=== PATIENT | male | born 1945 | race Caucasian/White ===

== ENCOUNTER 2022-05-05 09:45 | Day surgery (SDC) | payer MEDICARE, OTHER ==
[2022-05-04 08:53] LABS: Basophils # (auto) 0.1 10 ^3/uL (0-0.2); Basophils % (auto) 0.8 % (0.0-2.0); Eosinophils # (auto) 0.2 10 ^3/uL (0-0.8); Eosinophils % (auto) 2.7 % (0.0-7.0); Hematocrit 36.9 % (41.0-53.0); Hemoglobin 12.2 g/dL (13.5-17.5); Lymphocytes # (auto) 1.2 10 ^3/uL (0.4-5.4); Lymphocytes % (auto) 18.2 % (10.0-50.0); Mean Corpuscular Hemoglobin 27.4 pg (28.0-32.0); Mean Corpuscular Hgb Conc. 32.9 g/dL (32.0-36.0); Mean Corpuscular Volume 83.3 fL (80.0-100.0); Monocytes # (auto) 0.6 10 ^3/uL (0-1.3); Monocytes % (auto) 9.4 % (0.0-12.0); Neutrophils # (auto) 4.4 10 ^3/uL (1.6-8.6); Neutrophils % (auto) 68.9 % (37.0-80.0); Red Blood Cells 4.43 10^6/uL (4.5-5.90); Red Cell Distribution Width 15.4 % (11.8-14.3); White Blood Cell 6.4 10^3/uL (4.4-10.8)
[2022-05-04 09:18] LABS: INR 0.99 (0.9-1.15); Partial Thromboplastin Time 24.8 sec (23.6-33.0)
[2022-05-04 09:23] LABS: Urine Bacteria NONE SEEN /hpf (None Seen); Urine Blood Negative /uL (Negative); Urine Hyaline Cast FEW /lpf (0 - 2); Urine Specific Gravity 1.013 (1.001-1.035); Urine WBC <1 /hpf (0 - 3)
[2022-05-04 09:25] LABS: Albumin 3.8 g/dL (3.4-5.0); Potassium 4.4 mmol/L (3.5-5.1)
[2022-05-04 09:28] LABS: BUN/Creatinine Ratio 14.6; Bilirubin, Total 0.4 mg/dL (0.2-1.0); Total Protein 7.3 g/dL (6.4-8.2)
[~2022-05-05] VITALS: Ht 185.4 cm; Wt 97.5 kg
[~2022-05-05 09:45] MED LIST: AMLO10CA PO; APIX5TAB PO; CHOLCAP10 PO; CYCL-839 PO; CYCL1POW XX; LINA5TAB PO; METO25TA5 PO; PRAV20TA3 PO; TRIA37.56 PO
[2022-05-05] MEDS ORDERED: MIDAZOLAM HCL 2MG/2ML 2ml VIAL (1mg/ml) ONE (10:57)
[2022-05-05] MEDS ORDERED: fentaNYL CITRATE 100 MCG/2 ML VL ONE (10:57)
[2022-05-05] MEDS ORDERED: LIDOCAINE 2% (LOCAL ANESTH.) PF 5ml SDV ONE (11:00)
[2022-05-05] MEDS ORDERED: ONDANSETRON HCL 4 MG/2 ML VIAL ONE (11:00)
[2022-05-05] MEDS ORDERED: PROPOFOL 10 MG/ML 20 ML IV ONE (11:28)
[2022-05-05] MEDS ORDERED: ONDANSETRON HCL 4 MG/2 ML VIAL IV PRN (11:30)
[2022-05-05 12:15] VITALS: BP 113/53
== END 2022-05-05 12:15 | disposition home or self-care (01) ==
LOC: GI 09:45
PROVIDERS: ATTEND Internal Medicine Gastroenterology
DX: R19.5 Other fecal abnormalities (principal); D12.6 Benign neoplasm of colon, unspecified; K64.8 Other hemorrhoids; I12.9 Hypertensive chronic kidney disease with stage 1 through stage 4 chronic kidney disease, or unspecified chronic kidney disease; E11.22 Type 2 diabetes mellitus with diabetic chronic kidney disease; N18.30 Chronic kidney disease, stage 3 unspecified; E78.00 Pure hypercholesterolemia, unspecified; Z86.2 Personal history of diseases of the blood and blood-forming organs and certain disorders involving the immune mechanism; Z20.822 Contact with and (suspected) exposure to COVID-19
CPT/HCPCS: 36415; 45381; 45385; 80053; 81001; 82962; 85025; 85610; 85730; 88305; J2001; J2250; J2405; J2704; J3010; J7030; U0003; G0500

== ENCOUNTER → 2023-03-31 | Day surgery (SDC) | payer MEDICARE, OTHER ==
[2023-03-29 11:02] LABS: Basophils # (auto) 0 10 ^3/uL (0-0.2); Basophils % (auto) 0.7 % (0.0-2.0); Eosinophils # (auto) 0.2 10 ^3/uL (0-0.8); Eosinophils % (auto) 2.2 % (0.0-7.0); Hematocrit 39.3 % (41.0-53.0); Hemoglobin 13.1 g/dL (13.5-17.5); Lymphocytes # (auto) 1.3 10 ^3/uL (0.4-5.4); Mean Corpuscular Hemoglobin 28.1 pg (28.0-32.0); Mean Corpuscular Hgb Conc. 33.4 g/dL (32.0-36.0); Mean Corpuscular Volume 84.1 fL (80.0-100.0); Monocytes # (auto) 0.6 10 ^3/uL (0-1.3); Neutrophils # (auto) 4.8 10 ^3/uL (1.6-8.6); Neutrophils % (auto) 69.1 % (37.0-80.0); Nucleated Red Blood Cells % 0.1 %; Red Blood Cells 4.68 10^6/uL (4.5-5.90); Red Cell Distribution Width 14.7 % (11.8-14.3)
[2023-03-29 11:19] LABS: INR 0.97 (0.9-1.15); Partial Thromboplastin Time 25.5 sec (24.6-33.4)
[2023-03-29 11:53] LABS: Calcium 9.1 mg/dL (8.5-10.1); Potassium 4.2 mmol/L (3.5-5.1)
[2023-03-29 11:57] LABS: BUN/Creatinine Ratio 17.7 (10.0-20.0); Bilirubin, Total 0.6 mg/dL (0.2-1.0)
[~2023-03-31] VITALS: Ht 185.4 cm; Wt 102.1 kg
[~2023-03-31] MED LIST changes: -APIX5TAB PO; -CYCL1POW XX; +SODIUM CHLORIDE LOCK 10 ML ONE
[2023-03-31] MEDS: MIDAZOLAM HCL 5 MG/ML-1ML VIAL ONE ×4 (13:22→13:42)
[2023-03-31] MEDS: diphenhdrAMINE HCL 50 MG/1 ML VL ONE ×2 (13:22→13:24)
[2023-03-31] MEDS: fentaNYL CITRATE 100 MCG/2 ML VL ONE ×3 (13:22→13:30)
[2023-03-31 14:25] VITALS: BP 119/61
== END | disposition home or self-care (01) ==
LOC: GI 10:47
PROVIDERS: ATTEND Internal Medicine Gastroenterology
DX: Z09 Encounter for follow-up examination after completed treatment for conditions other than malignant neoplasm (principal); Z86.010 Personal history of colon polyps; K64.0 First degree hemorrhoids; K63.5 Polyp of colon; I10 Essential (primary) hypertension; Z98.890 Other specified postprocedural states; Z79.899 Other long term (current) drug therapy
CPT/HCPCS: 36415; 45385; 80053; 82962; 85025; 85610; 85730; J1200; J2250; J3010; J7030; 99152

== ENCOUNTER 2024-01-18 11:08 | Inpatient (IN) | payer MEDICARE, OTHER ==
[~2024-01-18] VITALS: Ht 185.4 cm; Wt 101.2 kg
[~2024-01-18 11:08] MED LIST changes: -SODIUM CHLORIDE LOCK 10 ML ONE; -TRIA37.56 PO; +TRIA37.587 PO
[2024-01-18] MEDS: HYDROcodone-ACET 5/325MG TAB PO ONE (12:39)
[2024-01-18 12:55] LABS: Basophils # (auto) 0.1 10 ^3/uL (0-0.2); Basophils % (auto) 0.6 % (0.0-2.0); Eosinophils # (auto) 0.2 10 ^3/uL (0-0.8); Eosinophils % (auto) 1.6 % (0.0-7.0); Hematocrit 40.7 % (41.0-53.0); Hemoglobin 13.6 g/dL (13.5-17.5); Lymphocytes % (auto) 9.4 % (10.0-50.0); Mean Corpuscular Hemoglobin 28.7 pg (28.0-32.0); Mean Corpuscular Hgb Conc. 33.4 g/dL (32.0-36.0); Mean Corpuscular Volume 85.7 fL (80.0-100.0); Monocytes # (auto) 0.6 10 ^3/uL (0-1.3); Monocytes % (auto) 6.2 % (0.0-12.0); Neutrophils # (auto) 8.4 10 ^3/uL (1.6-8.6); Neutrophils % (auto) 82.2 % (37.0-80.0); Red Blood Cells 4.75 10^6/uL (4.5-5.90); Red Cell Distribution Width 14.1 % (11.8-14.3); White Blood Cell 10.3 10^3/uL (4.4-10.8)
[2024-01-18 13:13] LABS: Alanine Aminotransferase 28 U/L (7-40); Albumin 4.5 g/dL (3.2-4.8); Alkaline Phosphatase 77 U/L (46-116); Anion Gap 7 (5-15); Aspartate Aminotransferase 18 U/L (13-40); BUN/Creatinine Ratio 19.6 (10.0-20.0); Bilirubin, Total 1.1 mg/dL (0.2-1.0); Blood Urea Nitrogen 21 mg/dL (9-23); Calcium 9.7 mg/dL (8.5-10.1); Carbon Dioxide 25 mmol/L (20-30); Chloride 110 mmol/L (98-107); Creatine Kinase IFCC 95 U/L (46-171); Glucose 117 mg/dL (74-106); Potassium 3.9 mmol/L (3.5-5.1); Sodium 142 mmol/L (136-145); Total Protein 6.5 g/dL (5.7-8.2)
[2024-01-18 15:40] LABS: Urine Bacteria NONE SEEN /hpf (None Seen); Urine Blood Negative /uL (Negative); Urine Clarity Clear (Clear); Urine Color Yellow (Yellow); Urine Mucus FEW (None Seen); Urine Protein, UAD Negative (Negative); Urine Specific Gravity 1.025 (1.001-1.035); Urine Urobilinogen Normal (Negative); Urine WBC 2 /hpf (0 - 3); Urine pH 5.5 (5.0-8.0)
[2024-01-18] MEDS ORDERED: DEXTROSE (50%) 50ML SYRG IV PRN (19:15)
[2024-01-18] MEDS ORDERED: IBUPROFEN 600 MG TAB PO PRN (19:15)
[2024-01-18] MEDS: IBUPROFEN 600 MG TAB PO ONE (19:36)
[2024-01-18] MEDS: SODIUM CHLORIDE 0.9% 1,000 ML IV SCH (19:55)
[2024-01-18 22:00] VITALS: BP 115/51; PULSE 69; RESP 18; TEMP 98.2; O2SAT 95
[2024-01-18] MEDS ORDERED: ALLO100T PO (22:17)
[2024-01-18] MEDS ORDERED: SODI650T PO (22:17)
[2024-01-18] MEDS: CYCLOBENZAPRINE HCL 10 MG TAB PO SCH (22:22)
[2024-01-18] MEDS: ERGOCALCIFEROL 50,000 UNIT(1.25MG) CAP PO SCH (22:22)
[2024-01-18] MEDS: PRAVASTATIN SODIUM 20 MG TAB PO SCH (22:23)
[2024-01-18] MEDS: ACCU-CHEK COMFORT CURVE STRIP VI SCH (22:24)
[2024-01-18] MEDS: METOPROLOL TARTRATE 25 MG TAB PO SCH (22:24)
[2024-01-18] MEDS: InsuLIN REG 1unit/0.01ml Soln (100units/ml) SC SCH (22:25)
[2024-01-18 22:29] VITALS: PULSE 74; RESP 18; O2SAT 94
[2024-01-19] VITALS (7 sets, daily range): BP systolic 125–149; BP diastolic 57–66; PULSE 63–70; RESP 16–18; TEMP 98.1–99; O2SAT 93–97
[2024-01-19] MEDS: TRIAMTERENE/HCTZ 37.5/25 MG CAP/TAB PO SCH (06:48)
[2024-01-19 07:15] LABS: Alanine Aminotransferase 21 U/L (7-40); Alkaline Phosphatase 68 U/L (46-116); Anion Gap 6 (5-15); Aspartate Aminotransferase 18 U/L (13-40); BUN/Creatinine Ratio 9.4 (10.0-20.0); Blood Urea Nitrogen 9 mg/dL (9-23); Carbon Dioxide 22 mmol/L (20-30); Chloride 112 mmol/L (98-107); Glucose 125 mg/dL (74-106); Potassium 3.7 mmol/L (3.5-5.1); Sodium 140 mmol/L (136-145)
[2024-01-19 07:16] LABS: Bilirubin, Total 0.7 mg/dL (0.2-1.0); Total Protein 6.2 g/dL (5.7-8.2)
[2024-01-19 07:18] LABS: Basophils # (auto) 0.1 10 ^3/uL (0-0.2); Basophils % (auto) 0.8 % (0.0-2.0); Eosinophils # (auto) 0.2 10 ^3/uL (0-0.8); Eosinophils % (auto) 2.9 % (0.0-7.0); Hematocrit 39.5 % (41.0-53.0); Hemoglobin 12.8 g/dL (13.5-17.5); Lymphocytes # (auto) 1.1 10 ^3/uL (0.4-5.4); Lymphocytes % (auto) 13.1 % (10.0-50.0); Mean Corpuscular Hemoglobin 28.6 pg (28.0-32.0); Mean Corpuscular Hgb Conc. 32.3 g/dL (32.0-36.0); Mean Corpuscular Volume 88.6 fL (80.0-100.0); Monocytes # (auto) 0.7 10 ^3/uL (0-1.3); Monocytes % (auto) 8.4 % (0.0-12.0); Neutrophils # (auto) 6.1 10 ^3/uL (1.6-8.6); Neutrophils % (auto) 74.8 % (37.0-80.0); Nucleated Red Blood Cells % 0.1 %; Red Blood Cells 4.46 10^6/uL (4.5-5.90); Red Cell Distribution Width 14.2 % (11.8-14.3); White Blood Cell 8.2 10^3/uL (4.4-10.8)
[2024-01-19] MEDS: amLODIPine BESYLATE 5 MG TAB PO SCH (09:36)
[2024-01-19] MEDS: ENOXAPARIN SOD 40 MG/0.4 ML SYRINGE SC SCH (09:37)
[2024-01-19] MEDS: BENAZEPRIL HCL 10 MG TAB PO SCH (09:37)
[2024-01-19] MEDS: HYDROcodone-ACET 5/325MG TAB PO PRN (09:38)
[2024-01-19] MEDS: LINAGLIPTIN BASE 5 MG PO SCH (10:00)
[2024-01-20] VITALS (7 sets, daily range): BP systolic 116–132; BP diastolic 52–68; PULSE 57–68; RESP 16–20; TEMP 98–98.8; O2SAT 91–96
[2024-01-21] VITALS (7 sets, daily range): BP systolic 108–126; BP diastolic 56–62; PULSE 54–68; RESP 16–18; TEMP 97.8–98.4; O2SAT 95–100
[2024-01-22] VITALS (7 sets, daily range): BP systolic 99–117; BP diastolic 48–60; PULSE 51–66; RESP 14–18; TEMP 97.4–97.7; O2SAT 95–98
[2024-01-23] VITALS (7 sets, daily range): BP systolic 106–127; BP diastolic 56–67; PULSE 53–64; RESP 17–18; TEMP 97.8–98.2; O2SAT 96–99
[2024-01-23 14:20] LABS: INR 1.01 (0.9-1.15); Partial Thromboplastin Time 28.5 SEC (24.5-34.5); Prothrombin Time 10.6 sec (9.3-11.8)
[2024-01-24 05:00] VITALS: BP 107/60; PULSE 55; RESP 18; TEMP 98.3; O2SAT 97
[2024-01-24] MEDS: ceFAZolin 2 GM/D5W50ml 50 ML IV ONE (06:51)
[2024-01-24 07:30] VITALS: BP 99/49; PULSE 61; RESP 16; RESP 18; TEMP 98.3; O2SAT 97
[2024-01-24] MEDS ORDERED: PROPOFOL 10 MG/ML 20 ML IV ONE ×2 (07:47→08:44)
[2024-01-24] MEDS ORDERED: DexAMETHasone SOD PHOS 10MG/1ML VIAL INJ ONE ×2 (07:47→08:53)
[2024-01-24] MEDS ORDERED: ONDANSETRON HCL 4 MG/2 ML VIAL ONE (07:47)
[2024-01-24] MEDS ORDERED: GLYCOPYRROLATE 0.2 MG/ML 1ML VIAL ONE (07:47)
[2024-01-24] MEDS ORDERED: KETOROLAC TROMETH 30 MG/ML 1ML VIAL ONE (07:47)
[2024-01-24] MEDS: CELECOXIB 100 MG CAP PO ONE (08:00)
[2024-01-24] MEDS: GABAPENTIN 400 MG CAP PO ONE (08:00)
[2024-01-24] MEDS: ACETAMINOPHEN IV 1000 MG/100ML (10MG/ML) IV ONE (08:00)
[2024-01-24] MEDS: ACETAMINOPHEN IV 100 ML IV ONE (08:01)
[2024-01-24] MEDS: CELECOXIB 100 MG CAP ONE (08:01)
[2024-01-24] MEDS: GABAPENTIN 400 MG CAP ONE (08:01)
[2024-01-24] MEDS ORDERED: EPINEPHrine HCL 1 MG/1 ML AMP ONE (08:06)
[2024-01-24] MEDS ORDERED: ePHEDrine SULFATE 50 MG/ML AMP ONE (08:23)
[2024-01-24] MEDS ORDERED: PHENYLEPHRINE HCL 10 MG/ML VL ONE ×2 (08:31→09:14)
[2024-01-24] MEDS ORDERED: SODIUM CHLORIDE LOCK 10 ML ONE ×2 (08:31→09:14)
[2024-01-24 09:08] VITALS: O2SAT 100
[2024-01-24] MEDS ORDERED: hydrALAZINE HCL 20 MG/ML VL IV PRN (09:30)
[2024-01-24] MEDS ORDERED: fentaNYL CITRATE 100 MCG/2 ML VL IV PRN (09:30)
[2024-01-24] MEDS ORDERED: ONDANSETRON HCL 4 MG/2 ML VIAL IV PRN (09:30)
[2024-01-24] MEDS ORDERED: NALOXONE HCL 0.4 MG/ML VIAL IV PRN (09:30)
[2024-01-24] MEDS ORDERED: HYDROmorphone HCL 2 MG/ML VL/or syr IV PRN ×2 (09:30→18:00)
[2024-01-24] MEDS ORDERED: LABETALOL HCL 5 MG/ML 4ML SYRINGE IV PRN (09:30)
[2024-01-24] MEDS ORDERED: FLUMAZENIL 0.1 MG/ML INJ 10ML MDV IV PRN (09:30)
[2024-01-24] MEDS ORDERED: ePHEDrine SULFATE 50 MG/ML AMP IV PRN (09:30)
[2024-01-24 12:30] VITALS: BP 108/60; PULSE 69; RESP 18; TEMP 97.4; O2SAT 94
[2024-01-24 16:25] VITALS: BP 120/68; PULSE 69; RESP 18; TEMP 98.2; O2SAT 97
[2024-01-24] MEDS: ACETAMINOPHEN 325 MG TAB PO PRN (17:57)
[2024-01-24 20:00] VITALS: BP 99/49; PULSE 61; PULSE 98; RESP 16; RESP 18; TEMP 98.3; O2SAT 94
[2024-01-25 01:00] VITALS: BP 134/61; PULSE 81; RESP 17; TEMP 98.2; O2SAT 93
[2024-01-25 05:00] VITALS: BP 128/61; PULSE 70; RESP 18; TEMP 97.4; O2SAT 95
[2024-01-25 08:48] VITALS: BP 133/64; PULSE 67; RESP 20; TEMP 98.3; O2SAT 94
[2024-01-25] MEDS ORDERED: APIX5TAB PO (11:58)
[2024-01-25] MEDS ORDERED: HYDR-4902 PO (11:58)
[2024-01-25] MEDS ORDERED: DOCU-94 PO (11:59)
[2024-01-25] MEDS: DOCUSATE SOD 100 MG CAP PO PRN (13:50)
[2024-01-25] MEDS ORDERED: POLYETHYLENE GLYCOL 17 GM PWDR PO PRN (14:45)
[2024-01-25] MEDS: POLYETHYLENE GLYCOL 17 GM PWDR PO ONE (16:14)
[2024-01-25 17:19] VITALS: BP 117/56; PULSE 64; RESP 20; TEMP 98.4; O2SAT 94
== END 2024-01-25 19:10 | disposition home health service (06) | DRG 481 ==
LOC: ER 11:08 → OVERFLOW 19:10 → WEST WING 21:28
PROVIDERS: ADMIT Nurse Practitioner Family; ATTEND Internal Medicine
PROC: 0QS634Z Reposition Right Upper Femur with Internal Fixation Device, Percutaneous Approach (ICD-10-PCS; principal; 2024-01-24 08:07)
DX: S72.144A Nondisplaced intertrochanteric fracture of right femur, initial encounter for closed fracture (principal); S52.611A Displaced fracture of right ulna styloid process, initial encounter for closed fracture; E11.9 Type 2 diabetes mellitus without complications; W01.0XXA Fall on same level from slipping, tripping and stumbling without subsequent striking against object, initial encounter; I10 Essential (primary) hypertension; E78.5 Hyperlipidemia, unspecified; M10.9 Gout, unspecified; Z96.652 Presence of left artificial knee joint; S62.306A Unspecified fracture of fifth metacarpal bone, right hand, initial encounter for closed fracture; Z82.3 Family history of stroke; Y93.89 Activity, other specified; Y92.89 Other specified places as the place of occurrence of the external cause; Y99.8 Other external cause status
CPT/HCPCS: 99285; G0042; 36415; 71045; 73110; 73130; 73502; 73562; 73721; 74176; 76000; 80053; 81001; 82550; 82607; 82962; 83036; 84484; 85025; 85610; 85730; 97110; 97116; 97163; 97530; G0378; J0131; J0171; J1100; J1815; J1885; J2405; J2704

== ENCOUNTER 2024-07-01 06:00 | Inpatient (IN) | payer MEDICARE, OTHER ==
[2024-06-28 10:14] LABS: Urine Bacteria None Seen /hpf (None Seen)
[2024-06-28 10:31] LABS: Basophils # (auto) 0.1 10 ^3/uL (0-0.2); Basophils % (auto) 0.8 % (0.0-2.0); Eosinophils # (auto) 0.2 10 ^3/uL (0-0.8); Eosinophils % (auto) 3.4 % (0.0-7.0); Hematocrit 39.8 % (41.0-53.0); Hemoglobin 13.4 g/dL (13.5-17.5); Lymphocytes # (auto) 1.5 10 ^3/uL (0.4-5.4); Lymphocytes % (auto) 22.4 % (10.0-50.0); Mean Corpuscular Hemoglobin 28.8 pg (28.0-32.0); Mean Corpuscular Hgb Conc. 33.7 g/dL (32.0-36.0); Mean Corpuscular Volume 85.7 fL (80.0-100.0); Monocytes # (auto) 0.6 10 ^3/uL (0-1.3); Neutrophils # (auto) 4.3 10 ^3/uL (1.6-8.6); Neutrophils % (auto) 64.4 % (37.0-80.0); Platelet Count (auto) 198 10^3/uL (140-450); Red Blood Cells 4.65 10^6/uL (4.5-5.90); Red Cell Distribution Width 14.6 % (11.8-14.3); White Blood Cell 6.7 10^3/uL (4.4-10.8)
[2024-06-28 10:47] LABS: Urine Blood Negative /uL (Negative); Urine Clarity Clear (Clear); Urine Color Light-Yellow (Yellow); Urine Protein, UAD Negative (Negative); Urine Specific Gravity 1.012 (1.001-1.035); Urine Urobilinogen Normal (Negative); Urine WBC <1 /hpf (0 - 3); Urine pH 5.5 (5.0-9.0)
[2024-06-28 10:48] LABS: INR 1.02 (0.9-1.15); Prothrombin Time 10.8 sec (9.3-11.8)
[2024-06-28 11:08] LABS: Alanine Aminotransferase 27 U/L (7-40); Albumin 4.4 g/dL (3.2-4.8); Alkaline Phosphatase 73 U/L (46-116); Anion Gap 5 (5-15); Aspartate Aminotransferase 16 U/L (13-40); BUN/Creatinine Ratio 16.4 (10.0-20.0); Bilirubin, Total 0.7 mg/dL (0.2-1.0); Blood Urea Nitrogen 21 mg/dL (9-23); Calcium 9.9 mg/dL (8.7-10.4); Carbon Dioxide 24 mmol/L (20-30); Chloride 110 mmol/L (98-107); Glucose 138 mg/dL (74-106); Potassium 4.2 mmol/L (3.5-5.1); Sodium 139 mmol/L (136-145)
[2024-06-28 11:09] LABS: Total Protein 6.7 g/dL (5.7-8.2)
[~2024-07-01] VITALS: Ht 185.4 cm; Wt 123.5 kg
[2024-07-01 03:00] VITALS: BP 150/78; PULSE 75; RESP 20; TEMP 97.3; O2SAT 93
[~2024-07-01 06:00] MED LIST changes: +ALLO100T PO; +ASCO500T11 PO; +BIOT1SUB SL; +COEN100C15 PO; -CYCL-839 PO; +IRONCAP19 OR; +KRIL1CAP11 PO; +MULT-1018 PO; +SODI650T PO; -TRIA37.587 PO
[2024-07-01] MEDS: ACETAMINOPHEN IV 100 ML IV ONE (06:34)
[2024-07-01] MEDS: TRANEXAMIC ACID 20 ML ONE (06:49)
[2024-07-01] MEDS: EPINEPHrine HCL 1 MG/1 ML AMP ONE (06:53)
[2024-07-01] MEDS: BUPIVACAINE 0.25% INJ 50ML VIAL ONE ×2 (06:53→07:21)
[2024-07-01] MEDS: BUPIVACAINE HCL 50 ML ONE (06:53)
[2024-07-01] MEDS: DexAMETHasone SOD PHOS 4 MG/1ML SDV INJ ONE (06:53)
[2024-07-01] MEDS ORDERED: KETOROLAC TROMETH 30 MG/ML 1ML VIAL ONE (06:56)
[2024-07-01] MEDS ORDERED: GLYCOPYRROLATE 0.2 MG/ML 1ML VIAL ONE (06:56)
[2024-07-01] MEDS ORDERED: KETAMINE 50mg/ML 1ml syringe ONE (06:56)
[2024-07-01] MEDS ORDERED: DexAMETHasone SOD PHOS 10MG/1ML VIAL INJ ONE (06:56)
[2024-07-01] MEDS ORDERED: ONDANSETRON HCL 4 MG/2 ML VIAL ONE (06:56)
[2024-07-01] MEDS ORDERED: PROPOFOL 10 MG/ML 20 ML IV ONE ×2 (06:56→07:55)
[2024-07-01] MEDS ORDERED: LIDOCAINE 1% INJ PF 5ML AMP ONE (06:56)
[2024-07-01] MEDS: ACETAMINOPHEN IV 1000 MG/100ML (10MG/ML) IV ONE (07:00)
[2024-07-01] MEDS: PREGABALIN CAPSULE 75 MG CAP PO ONE (07:00)
[2024-07-01] MEDS: CELECOXIB 100 MG CAP PO ONE (07:00)
[2024-07-01] MEDS: KETOROLAC TROMETH 30 MG/ML 1ML VIAL ONE (07:21)
[2024-07-01] MEDS: ceFAZolin 2 GM/D5W50ml 50 ML IV ONE (07:21)
[2024-07-01] MEDS: MORPHINE SULF PF 5 MG/10 ML VIAL ONE (07:21)
[2024-07-01] MEDS: VANCOMYCIN HCL 1000 MG VL ONE (07:21)
[2024-07-01] MEDS ORDERED: HYDROmorphone HCL 2 MG/ML VL/or syr IV PRN ×2 (07:30→14:30)
[2024-07-01] MEDS ORDERED: NITROGLYCERIN 0.4 MG SL TAB SL PRN (07:30)
[2024-07-01] MEDS: ceFAZolin 1GM/50ML 50 ML IV SCH (07:30)
[2024-07-01] MEDS ORDERED: ONDANSETRON HCL 4 MG/2 ML VIAL IV PRN ×2 (07:30→09:15)
[2024-07-01] MEDS ORDERED: MORPHINE SULFATE INJ 2 MG/ml SYRG IV PRN (07:30)
[2024-07-01] MEDS ORDERED: ePHEDrine SULFATE 50 MG/ML AMP ONE (07:39)
[2024-07-01] MEDS ORDERED: PHENYLEPHRINE HCL 10 MG/ML VL ONE (08:02)
[2024-07-01] MEDS ORDERED: SODIUM CHLORIDE LOCK 10 ML ONE (08:02)
[2024-07-01 09:05] VITALS: O2SAT 95
[2024-07-01] MEDS: LACTATED RINGER'S 1,000 ML IV SCH (09:05)
[2024-07-01] MEDS ORDERED: NALOXONE HCL 0.4 MG/ML VIAL IV PRN (09:15)
[2024-07-01] MEDS ORDERED: fentaNYL CITRATE 100 MCG/2 ML VL IV PRN (09:15)
[2024-07-01] MEDS ORDERED: ePHEDrine SULFATE 50 MG/ML AMP IV PRN (09:15)
[2024-07-01] MEDS ORDERED: FLUMAZENIL 0.1 MG/ML INJ 10ML MDV IV PRN (09:15)
[2024-07-01] MEDS ORDERED: hydrALAZINE HCL 20 MG/ML VL IV PRN (09:15)
[2024-07-01] MEDS ORDERED: LINAGLIPTIN BASE 5 MG PO SCH (10:00)
[2024-07-01] MEDS: CEFEPIME 1GM/ 50ML 50 ML IV SCH (10:00)
[2024-07-01] MEDS ORDERED: AMLODIPINE BESYLATE BENAZEPRIL PO SCH (10:00)
[2024-07-01] MEDS: HYDROmorphone HCL 2 MG/ML VL/or syr IV PRN (11:24)
[2024-07-01] MEDS: oxyCODONE HCL 5MG TAB PO PRN (12:00)
[2024-07-01] MEDS ORDERED: DEXTROSE (50%) 50ML SYRG IV PRN (14:30)
[2024-07-01 15:30] VITALS: PULSE 75; RESP 18; O2SAT 96
[2024-07-01 16:09] VITALS: BP 150/78; PULSE 75; RESP 20; O2SAT 93
[2024-07-01] MEDS ORDERED: FURO20TA4 PO (16:11)
[2024-07-01] MEDS ORDERED: MET25T PO (16:11)
[2024-07-01 17:00] VITALS: BP 150/78; PULSE 75; RESP 20; TEMP 97.3; O2SAT 93
[2024-07-01] MEDS: ACCU-CHEK COMFORT CURVE STRIP VI SCH (18:05)
[2024-07-01] MEDS: InsuLIN REG 1unit/0.01ml Soln (100units/ml) SC SCH (18:07)
[2024-07-01 20:00] VITALS: RESP 18; O2SAT 96
[2024-07-01] MEDS: DOCUSATE SOD 100 MG CAP PO SCH (21:33)
[2024-07-01] MEDS: oxyCODONE ER 10 MG TAB PO SCH (21:34)
[2024-07-01] MEDS: METOPROLOL TARTRATE 25 MG TAB PO SCH (21:34)
[2024-07-01] MEDS: PRAVASTATIN SODIUM 20 MG TAB PO SCH (21:35)
[2024-07-02 05:00] VITALS: BP 110/62; PULSE 70; RESP 17; TEMP 98.4; O2SAT 99
[2024-07-02 06:09] LABS: Hematocrit 36.7 % (41.0-53.0); Hemoglobin 12.3 g/dL (13.5-17.5); Mean Corpuscular Hemoglobin 28.8 pg (28.0-32.0); Mean Corpuscular Hgb Conc. 33.7 g/dL (32.0-36.0); Mean Corpuscular Volume 85.7 fL (80.0-100.0); Platelet Count (auto) 192 10^3/uL (140-450); Red Blood Cells 4.28 10^6/uL (4.5-5.90); Red Cell Distribution Width 14.3 % (11.8-14.3); White Blood Cell 15.6 10^3/uL (4.4-10.8)
[2024-07-02 06:30] LABS: Alanine Aminotransferase 28 U/L (7-40); Albumin 3.9 g/dL (3.2-4.8); Alkaline Phosphatase 69 U/L (46-116); Anion Gap 8 (5-15); Aspartate Aminotransferase 15 U/L (13-40); BUN/Creatinine Ratio 13.4 (10.0-20.0); Blood Urea Nitrogen 15 mg/dL (9-23); Calcium 9.7 mg/dL (8.7-10.4); Carbon Dioxide 23 mmol/L (20-30); Chloride 106 mmol/L (98-107); Glucose 190 mg/dL (74-106); Potassium 4.5 mmol/L (3.5-5.1); Sodium 137 mmol/L (136-145)
[2024-07-02 06:31] LABS: Bilirubin, Total 0.5 mg/dL (0.2-1.0); Total Protein 6.3 g/dL (5.7-8.2)
[2024-07-02 06:35] LABS: Basophils % (manual) 0 (0.0-2.0); Blast Cells 0; Eosinophils % (manual) 0 (0-7); Metamyelocytes % 0; Myelocytes % 0; Promyelocytes % 0; Reactive Lymphocytes 0
[2024-07-02 08:00] VITALS: RESP 16; O2SAT 98
[2024-07-02 08:37] LABS: Band Neutrophils % (manual) 6; Lymphocytes % (manual) 5 (10.0-50.0); Monocytes % (manual) 4 (0-12)
[2024-07-02 08:38] LABS: Platelet Estimate Adequate
[2024-07-02 09:00] VITALS: BP 112/64; PULSE 68; RESP 17; TEMP 97.8; O2SAT 99
[2024-07-02] MEDS: ENOXAPARIN SOD 40 MG/0.4 ML SYRINGE SC SCH (09:58)
[2024-07-02] MEDS: ERGOCALCIFEROL 50,000 UNIT(1.25MG) CAP PO SCH (09:59)
[2024-07-02] MEDS: OXYCODONE W/ ACETAMINOPHEN 5/325MG TABLET PO PRN (11:30)
[2024-07-02 12:00] VITALS: BP 159/114; PULSE 60; RESP 18; TEMP 98; O2SAT 97
[2024-07-02] MEDS: MORPHINE SULFATE INJ 2 MG/ml SYRG IV PRN (14:03)
[2024-07-02 16:00] VITALS: BP 109/54; PULSE 61; RESP 18; TEMP 98.1; O2SAT 94
[2024-07-02 21:00] VITALS: BP 115/53; PULSE 66; RESP 16; TEMP 98; O2SAT 97
[2024-07-03 01:00] VITALS: BP 131/67; PULSE 58; RESP 16; TEMP 98.1; O2SAT 98
[2024-07-03 05:00] VITALS: BP 138/69; PULSE 70; RESP 16; TEMP 98.2; O2SAT 96
[2024-07-03 05:39] LABS: Basophils # (auto) 0 10 ^3/uL (0-0.2); Basophils % (auto) 0.2 % (0.0-2.0); Eosinophils # (auto) 0.1 10 ^3/uL (0-0.8); Eosinophils % (auto) 1.1 % (0.0-7.0); Hematocrit 37.6 % (41.0-53.0); Hemoglobin 12.6 g/dL (13.5-17.5); Lymphocytes # (auto) 0.9 10 ^3/uL (0.4-5.4); Mean Corpuscular Hemoglobin 28.9 pg (28.0-32.0); Mean Corpuscular Hgb Conc. 33.6 g/dL (32.0-36.0); Mean Corpuscular Volume 85.9 fL (80.0-100.0); Monocytes # (auto) 0.8 10 ^3/uL (0-1.3); Monocytes % (auto) 7.6 % (0.0-12.0); Neutrophils # (auto) 8.5 10 ^3/uL (1.6-8.6); Neutrophils % (auto) 82.1 % (37.0-80.0); Platelet Count (auto) 182 10^3/uL (140-450); Red Blood Cells 4.37 10^6/uL (4.5-5.90); Red Cell Distribution Width 14.9 % (11.8-14.3); White Blood Cell 10.4 10^3/uL (4.4-10.8)
[2024-07-03 05:54] LABS: Chloride 106 mmol/L (98-107); Potassium 4.5 mmol/L (3.5-5.1); Sodium 137 mmol/L (136-145)
[2024-07-03 05:55] LABS: Anion Gap 6 (5-15); Calcium 9.6 mg/dL (8.7-10.4); Carbon Dioxide 25 mmol/L (20-30)
[2024-07-03 06:00] LABS: BUN/Creatinine Ratio 15.1 (10.0-20.0); Blood Urea Nitrogen 19 mg/dL (9-23); Glucose 169 mg/dL (74-106)
[2024-07-03 08:02] VITALS: BP 139/64; PULSE 69; RESP 20; TEMP 97.9; O2SAT 97
[2024-07-03] MEDS: OXYCODONE W/ ACETAMINOPHEN 5/325MG TABLET PO PRN (08:16)
[2024-07-03 13:28] VITALS: BP 135/69; PULSE 71; RESP 18; TEMP 98.3; O2SAT 95
[2024-07-03 17:28] VITALS: BP 146/76; PULSE 74; RESP 20; TEMP 99.3; O2SAT 96
== END 2024-07-03 18:45 | disposition home health service (06) | DRG 470 ==
LOC: SUR 06:00 → TELE 07:27 → OVERFLOW 09:09 → EAST 16:29
PROVIDERS: ADMIT Orthopaedic Surgery Adult Reconstructive Orthopaedic Surgery; ATTEND Internal Medicine
PROC: 0SRC0J9 Replacement of Right Knee Joint with Synthetic Substitute, Cemented, Open Approach (ICD-10-PCS; principal; 2024-07-01 07:21)
DX: M17.11 Unilateral primary osteoarthritis, right knee (principal); J43.9 Emphysema, unspecified; M10.9 Gout, unspecified; I12.9 Hypertensive chronic kidney disease with stage 1 through stage 4 chronic kidney disease, or unspecified chronic kidney disease; E66.9 Obesity, unspecified; M21.061 Valgus deformity, not elsewhere classified, right knee; E11.22 Type 2 diabetes mellitus with diabetic chronic kidney disease; N18.9 Chronic kidney disease, unspecified; E78.5 Hyperlipidemia, unspecified; Z79.899 Other long term (current) drug therapy; Z79.84 Long term (current) use of oral hypoglycemic drugs; Z82.3 Family history of stroke; Z68.35 Body mass index [BMI] 35.0-35.9, adult; Z86.718 Personal history of other venous thrombosis and embolism
CPT/HCPCS: 36415; 73562; 80048; 80053; 81001; 82962; 85007; 85025; 85027; 85610; 85730; 86850; 86900; 86901; 97116; 97162; 97530; C1713; G0378; J0131; J0171; J1100; J1815; J1885; J2405; J2704; J3490

== ENCOUNTER 2024-07-24 16:03 | Inpatient (IN) | payer MEDICARE, OTHER ==
[~2024-07-24] VITALS: Ht 185.4 cm; Wt 102.9 kg
[~2024-07-24 16:03] MED LIST changes: +FURO20TA4 PO; +MET25T PO
[2024-07-24] MEDS ORDERED: VANCOMYCIN PER PHARMACY 0 MG IV SCH (16:15)
[2024-07-24 16:45] LABS: Basophils # (auto) 0.1 10 ^3/uL (0-0.2); Basophils % (auto) 1.1 % (0.0-2.0); Eosinophils # (auto) 0.4 10 ^3/uL (0-0.8); Eosinophils % (auto) 4.2 % (0.0-7.0); Hematocrit 36.1 % (41.0-53.0); Hemoglobin 12.2 g/dL (13.5-17.5); Lymphocytes # (auto) 2.2 10 ^3/uL (0.4-5.4); Lymphocytes % (auto) 24.4 % (10.0-50.0); Mean Corpuscular Hemoglobin 28.1 pg (28.0-32.0); Mean Corpuscular Volume 82.8 fL (80.0-100.0); Monocytes # (auto) 0.7 10 ^3/uL (0-1.3); Monocytes % (auto) 7.5 % (0.0-12.0); Neutrophils # (auto) 5.6 10 ^3/uL (1.6-8.6); Neutrophils % (auto) 62.8 % (37.0-80.0); Nucleated Red Blood Cells % 0.1 %; Platelet Count (auto) 380 10^3/uL (140-450); Red Blood Cells 4.35 10^6/uL (4.5-5.90); Red Cell Distribution Width 14.1 % (11.8-14.3); White Blood Cell 8.9 10^3/uL (4.4-10.8)
[2024-07-24 16:51] LABS: Alanine Aminotransferase 27 U/L (7-40); Albumin 4.5 g/dL (3.2-4.8); Alkaline Phosphatase 106 U/L (46-116); Anion Gap 7 (5-15); Aspartate Aminotransferase 13 U/L (13-40); BUN/Creatinine Ratio 17.6 (10.0-20.0); Bilirubin, Total 0.4 mg/dL (0.2-1.0); Blood Urea Nitrogen 19 mg/dL (9-23); Calcium 10.3 mg/dL (8.7-10.4); Carbon Dioxide 26 mmol/L (20-30); Chloride 107 mmol/L (98-107); Glucose 117 mg/dL (74-106); Potassium 4.4 mmol/L (3.5-5.1); Sodium 140 mmol/L (136-145); Total Protein 7.1 g/dL (5.7-8.2)
[2024-07-24 16:59] LABS: CRP High Sensitivity 1.89 mg/dL (<1.0)
[2024-07-24 17:28] LABS: Erythrocyte Sedimentation Rate 18 mm/hr (0-20)
[2024-07-24] MEDS: VANCOMYCIN 1GM/200ML 200 ML IV SCH (20:42)
[2024-07-24 20:56] VITALS: PULSE 60; RESP 18; O2SAT 98
[2024-07-24] MEDS ORDERED: ONDANSETRON HCL 4 MG/2 ML VIAL IV PRN (22:00)
[2024-07-24] MEDS ORDERED: ACETAMINOPHEN 325 MG TAB PO PRN (22:00)
[2024-07-24 22:16] VITALS: PULSE 57; RESP 16; O2SAT 98
[2024-07-24] MEDS: ATORVASTATIN 20 MG TAB PO SCH (23:27)
[2024-07-24] MEDS: METOPROLOL TARTRATE 25 MG TAB PO SCH (23:30)
[2024-07-25] VITALS (9 sets, daily range): BP systolic 113–156; BP diastolic 50–74; PULSE 55–77; RESP 16–20; TEMP 97.9–98.9; O2SAT 95–100
[2024-07-25] MEDS: ENOXAPARIN SOD 100 MG/1 ML SYRINGE SC SCH (01:04)
[2024-07-25] MEDS: TEMAZEPAM 15 MG CAP PO PRN (01:08)
[2024-07-25] MEDS: VANCOMYCIN 1GM/200ML 200 ML IV SCH (05:18)
[2024-07-25 06:27] LABS: Anion Gap 8 (5-15); Calcium 9.5 mg/dL (8.7-10.4); Carbon Dioxide 24 mmol/L (20-30); Chloride 107 mmol/L (98-107); Potassium 3.9 mmol/L (3.5-5.1); Sodium 139 mmol/L (136-145)
[2024-07-25 06:31] LABS: Basophils # (auto) 0 10 ^3/uL (0-0.2); Basophils % (auto) 0.5 % (0.0-2.0); Eosinophils # (auto) 0.3 10 ^3/uL (0-0.8); Eosinophils % (auto) 3.6 % (0.0-7.0); Hematocrit 32.7 % (41.0-53.0); Hemoglobin 11.3 g/dL (13.5-17.5); Lymphocytes # (auto) 1.2 10 ^3/uL (0.4-5.4); Lymphocytes % (auto) 15.4 % (10.0-50.0); Mean Corpuscular Hemoglobin 28.6 pg (28.0-32.0); Mean Corpuscular Hgb Conc. 34.4 g/dL (32.0-36.0); Mean Corpuscular Volume 83.3 fL (80.0-100.0); Monocytes # (auto) 0.6 10 ^3/uL (0-1.3); Monocytes % (auto) 7.2 % (0.0-12.0); Neutrophils # (auto) 5.7 10 ^3/uL (1.6-8.6); Neutrophils % (auto) 73.3 % (37.0-80.0); Nucleated Red Blood Cells % 0.1 %; Platelet Count (auto) 315 10^3/uL (140-450); Red Blood Cells 3.93 10^6/uL (4.5-5.90); Red Cell Distribution Width 14.2 % (11.8-14.3); White Blood Cell 7.8 10^3/uL (4.4-10.8)
[2024-07-25 06:33] LABS: BUN/Creatinine Ratio 16.2 (10.0-20.0); Blood Urea Nitrogen 18 mg/dL (9-23); Glucose 140 mg/dL (74-106)
[2024-07-25] MEDS ORDERED: ENOXAPARIN SOD 40 MG/0.4 ML SYRINGE SC SCH (10:00)
[2024-07-25] MEDS ORDERED: DEXTROSE (50%) 50ML SYRG IV PRN (10:15)
[2024-07-25] MEDS: PIPERACILLIN-TAZOB 3.375GM 100 ML IV ONE (11:30)
[2024-07-25] MEDS: SODIUM CHLORIDE 0.9% 1,000 ML IV SCH (11:31)
[2024-07-25] MEDS: ACCU-CHEK COMFORT CURVE STRIP VI SCH (11:31)
[2024-07-25] MEDS: InsuLIN REG 1unit/0.01ml Soln (100units/ml) SC SCH (11:51)
[2024-07-25] MEDS: PIPERACILLIN-TAZOB 3.375GM 100 ML IV SCH ×2 (12:32→20:54)
[2024-07-25] MEDS ORDERED: FAMO20TA10 PO (14:00)
[2024-07-25] MEDS ORDERED: CELE100C82 PO (14:00)
[2024-07-25] MEDS ORDERED: CHOL20007 PO (14:00)
[2024-07-25] MEDS ORDERED: B-COCAP34 PO (14:00)
[2024-07-25] MEDS: FAMOTIDINE 20 MG TAB PO ONE (15:43)
[2024-07-25] MEDS: HYDROcodone-ACET 5/325MG TAB PO PRN (15:54)
[2024-07-25] MEDS: IBUPROFEN 600 MG TAB PO PRN (18:33)
[2024-07-25 19:39] LABS: Urine Bacteria None Seen /hpf (None Seen)
[2024-07-25 20:11] LABS: Urine Blood Negative /uL (Negative); Urine Clarity Clear (Clear); Urine Color Yellow (Yellow); Urine Protein, UAD Negative (Negative); Urine Specific Gravity 1.023 (1.001-1.035); Urine Urobilinogen Normal (Negative); Urine WBC 1 /hpf (0 - 3)
[2024-07-25] MEDS: FAMOTIDINE 20 MG TAB PO SCH (20:56)
[2024-07-26 00:37] VITALS: BP 118/53; PULSE 58; RESP 18; TEMP 98; O2SAT 97
[2024-07-26 05:00] VITALS: BP 124/87; PULSE 60; RESP 16; TEMP 97.8; O2SAT 99
[2024-07-26 06:28] LABS: Anion Gap 7 (5-15); Carbon Dioxide 26 mmol/L (20-30); Chloride 109 mmol/L (98-107); Potassium 4.6 mmol/L (3.5-5.1); Sodium 142 mmol/L (136-145)
[2024-07-26 06:29] LABS: Calcium 9.5 mg/dL (8.7-10.4)
[2024-07-26 06:34] LABS: BUN/Creatinine Ratio 15.7 (10.0-20.0); Blood Urea Nitrogen 18 mg/dL (9-23); Glucose 132 mg/dL (74-106)
[2024-07-26 06:43] LABS: Basophils # (auto) 0.1 10 ^3/uL (0-0.2); Basophils % (auto) 0.9 % (0.0-2.0); Eosinophils # (auto) 0.4 10 ^3/uL (0-0.8); Eosinophils % (auto) 5.3 % (0.0-7.0); Hematocrit 32.8 % (41.0-53.0); Lymphocytes # (auto) 1.6 10 ^3/uL (0.4-5.4); Mean Corpuscular Hemoglobin 28.3 pg (28.0-32.0); Mean Corpuscular Hgb Conc. 33.6 g/dL (32.0-36.0); Mean Corpuscular Volume 84.3 fL (80.0-100.0); Monocytes # (auto) 0.6 10 ^3/uL (0-1.3); Monocytes % (auto) 8.9 % (0.0-12.0); Neutrophils # (auto) 4.3 10 ^3/uL (1.6-8.6); Neutrophils % (auto) 61.9 % (37.0-80.0); Platelet Count (auto) 290 10^3/uL (140-450); Red Blood Cells 3.89 10^6/uL (4.5-5.90); Red Cell Distribution Width 14.4 % (11.8-14.3); White Blood Cell 6.9 10^3/uL (4.4-10.8)
[2024-07-26 08:00] VITALS: PULSE 56; PULSE 60; RESP 18; O2SAT 98
[2024-07-26 20:00] VITALS: PULSE 64; PULSE 76; RESP 17; O2SAT 99
[2024-07-26 20:39] VITALS: BP 120/50; PULSE 66; RESP 16; TEMP 98.2; O2SAT 96
[2024-07-27] VITALS (9 sets, daily range): BP systolic 117–139; BP diastolic 53–70; PULSE 56–72; RESP 16–20; TEMP 97.1–98.4; O2SAT 97–100
[2024-07-27] MEDS: APIXABAN 5 MG TAB PO SCH (22:01)
[2024-07-28 01:00] VITALS: BP 118/56; PULSE 68; TEMP 98.1; O2SAT 98
[2024-07-28 05:00] VITALS: BP 122/58; PULSE 57; RESP 18; TEMP 98.2; O2SAT 98
[2024-07-28 07:10] LABS: Basophils # (auto) 0.1 10 ^3/uL (0-0.2); Eosinophils # (auto) 0.3 10 ^3/uL (0-0.8); Eosinophils % (auto) 4.9 % (0.0-7.0); Hematocrit 33.2 % (41.0-53.0); Hemoglobin 11.2 g/dL (13.5-17.5); Lymphocytes # (auto) 1.5 10 ^3/uL (0.4-5.4); Lymphocytes % (auto) 22.4 % (10.0-50.0); Mean Corpuscular Hemoglobin 28.2 pg (28.0-32.0); Mean Corpuscular Hgb Conc. 33.9 g/dL (32.0-36.0); Mean Corpuscular Volume 83.3 fL (80.0-100.0); Monocytes # (auto) 0.6 10 ^3/uL (0-1.3); Monocytes % (auto) 9.2 % (0.0-12.0); Neutrophils # (auto) 4.3 10 ^3/uL (1.6-8.6); Neutrophils % (auto) 62.5 % (37.0-80.0); Platelet Count (auto) 260 10^3/uL (140-450); Red Blood Cells 3.98 10^6/uL (4.5-5.90); Red Cell Distribution Width 14.5 % (11.8-14.3); White Blood Cell 6.8 10^3/uL (4.4-10.8)
[2024-07-28 07:27] LABS: Anion Gap 13 (5-15); Carbon Dioxide 19 mmol/L (20-30); Chloride 108 mmol/L (98-107); Sodium 140 mmol/L (136-145)
[2024-07-28 07:28] LABS: Calcium 9.7 mg/dL (8.7-10.4)
[2024-07-28 07:33] LABS: BUN/Creatinine Ratio 10.6 (10.0-20.0); Blood Urea Nitrogen 11 mg/dL (9-23); Glucose 123 mg/dL (74-106)
[2024-07-28 08:00] VITALS: PULSE 58; PULSE 63; RESP 18; O2SAT 98
[2024-07-28 08:54] VITALS: BP 119/61; PULSE 63; RESP 18; TEMP 98.1; O2SAT 98
[2024-07-28 12:24] VITALS: BP 140/72; PULSE 69; TEMP 98.4; O2SAT 98
[2024-07-28] MEDS ORDERED: APIX5TAB PO (14:30)
[2024-07-28] MEDS ORDERED: MET25T PO (14:30)
[2024-07-28] MEDS ORDERED: ATOR20TA50 PO (14:30)
[2024-07-28] MEDS ORDERED: LEVO750T40 PO (14:33)
[2024-07-28 15:15] VITALS: BP 140/72; PULSE 69; RESP 17; TEMP 36.9; O2SAT 69
[2024-08-04] MEDS ORDERED: APIXABAN 5 MG TAB PO SCH (10:00)
== END 2024-07-28 16:00 | disposition home or self-care (01) | DRG 863 ==
LOC: ER 16:03 → EAST 21:57 → OVERFLOW 21:57 → EAST 07-25 00:12 → TELE-EAST 07-25 21:49
PROVIDERS: ADMIT Nurse Practitioner; ATTEND Internal Medicine
DX: T81.40XA Infection following a procedure, unspecified, initial encounter (principal); I82.431 Acute embolism and thrombosis of right popliteal vein; L03.115 Cellulitis of right lower limb; E11.22 Type 2 diabetes mellitus with diabetic chronic kidney disease; E78.5 Hyperlipidemia, unspecified; N18.9 Chronic kidney disease, unspecified; I12.9 Hypertensive chronic kidney disease with stage 1 through stage 4 chronic kidney disease, or unspecified chronic kidney disease; Z96.651 Presence of right artificial knee joint; M25.461 Effusion, right knee; J43.9 Emphysema, unspecified; E11.51 Type 2 diabetes mellitus with diabetic peripheral angiopathy without gangrene; J44.9 Chronic obstructive pulmonary disease, unspecified; Z79.899 Other long term (current) drug therapy; Z79.84 Long term (current) use of oral hypoglycemic drugs; Z80.0 Family history of malignant neoplasm of digestive organs; Z82.3 Family history of stroke; Z87.891 Personal history of nicotine dependence
CPT/HCPCS: 36415; 73700; 80048; 80053; 80202; 81001; 82565; 82962; 83605; 85025; 85652; 86141; 87040; 87081; 93971; 97163; G0378; J1815; J2543